=== PATIENT | male | born 1930 | race Caucasian/White ===

== ENCOUNTER 2017-03-30 20:50 | Inpatient (IN) | payer MEDICARE ==
[2017-03-30] MEDS ORDERED: Oseltamivir 75 MG CAP PO SCH (21:30)
[2017-03-30] MEDS ORDERED: Enoxaparin Sodium 100 MG/ML SYRINGE ONE (21:49)
[2017-03-30 22:41] LABS: INR-International Normal Ratio 1.1; PTT 23.3 SEC (22.9-36.1); Prothrombin Time 14.5 SEC (12.0-14.7)
[2017-03-30 23:00] LABS: CKMB 4.7 ng/mL (0-6.6)
[2017-03-30 23:13] LABS: Troponin I 2.248 ng/mL (< 0.028)
[2017-03-30] MEDS ORDERED: Ondansetron HCl/PF 4 MG/2 ML Vial IVP PRN (23:34)
[2017-03-30] MEDS ORDERED: Ondansetron ODT 4 MG TAB PO PRN (23:34)
[2017-03-30] MEDS ORDERED: Acetaminophen 325 MG TAB PO PRN (23:34)
[2017-03-30] MEDS ORDERED: Acetaminophen 650 MG Suppository PR PRN (23:34)
[2017-03-31] MEDS: Sodium Chloride 0.9% 1,000 ML IV SCH ×4 (00:04→17:00)
[2017-03-31] MEDS: Vancomycin HCl 1.25 GM in Sodium Chloride 0.9% 250 ML 250 ML IVPB SCH (00:28)
[2017-03-31 01:24] LABS: Critical Call Chem Troponin I RESULT DECREASING; Troponin I 2.066 ng/mL (< 0.028)
--- NOTE | 2017-03-31 02:50 | HP-2 ---
DATE OF ADMISSION: 03/30/2017. CODE STATUS: DNR/DNI. PRIMARY CARE PHYSICIAN: Dr. Byrne, city call. ATTENDING: Dr. Ge. RESIDENT: Rizwan Petersen MD, PGY1. HISTORIAN: Granddaughter and daughter. CHIEF COMPLAINT: AMS, not getting out of bed. HISTORY OF PRESENT ILLNESS: This is an 86-year-old male that came into the ER with altered mental st atus and 2-day history of not really getting out of bed, not being compliant. Initially when I went and talked to the patient, there was no family in the room, tried talking with him, he was only alert and oriented x2, did not answer questions appropriately and did not seem to be with it very much, di d not follow commands very well. Family did end up coming to the room, granddaughter, daughter and s on-in-law. Granddaughter had been the one checking in on him the last few days. The granddaughter's mom stays with him usually radio time buyer, but she started getting sick today, did not feel good, did not want to get him sick, so had not been staying with him. They were checking on him frequently. They said yesterday he started kind of just not feeling too well, was not getting up out of bed, was stil l drinking okay, but was not eating very well and they said he maybe had a mild cough then they said they went and checked on him this morning, took him breakfast, was not eating. Her granddaughter's s on said he was not getting out of bed, was not being cooperative, so they continued to check him agai n, still was not really getting out of bed, was not really with it kind of altered, so then they sent him to the ER where he got a fluid bolus and got Rocephin. REVIEW OF SYSTEMS: Unable to obtain the review of systems due to his altered mental status. 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 PAST SURGICAL HISTORY: None. ALLERGIES: No known drug allergies. MEDICATIONS: He only takes tamsulosin, unknown dose and 2 baby aspirins a day. FAMILY HISTORY: Unknown. SOCIAL HISTORY: Never a smoker. No alcohol. No illicit drug use. PHYSICAL EXAMINATION: VITAL SIGNS: Blood pressure was 139/94, pulse was 110, respirations were 18, temperature was 98.7, p ulse ox 97% on room air, weight was 96.3 kilograms. GENERAL: Alert and oriented x2, well-developed, well-nourished, obese, not appropriately interactive and not following commands. EYES: Conjunctivae within normal limits. PERRLA. ENT: TMs pearly byrne. No bulging or erythema. His mucous membranes were a little dry. NECK: Supple, no lymphadenopathy, no thyromegaly, no bruits. CARDIOVASCULAR: Irregularly irregular. No murmurs, no gallops. Radial pulses, pedal pulses palpate d bilaterally. RESPIRATORY: Normal breathing effort. No retractions. Lungs are clear to auscultation bilaterally. SKIN: He had some cool extremities. His hands and feet were kind of cool to the touch. ABDOMEN: Soft, nontender to palpation. Bowel sounds are normal in all 4 quadrants. No masses or di stention. EXTREMITIES: No edema. No pitting. No sign of fluid overload. MUSCULOSKELETAL: Structure within normal limits. Had decreased range of motion, was not out really following commands. NEUROLOGIC: Had some focal neuro deficits as he was not following commands, but likely more due to a ltered mental status. LABORATORY DATA: These labs were drawn at the outside ER in [place]. White blood cell count was 3 .49, hemoglobin was 17, hematocrit was 49.6, platelets were 102, MCV was 83.7. Sodium was 139, potas sium was 4.6, chloride was 105, carbon dioxide was 19, BUN was 29.1, creatinine was 1.9. GFR was 41, glucose was 120. CK was 1063, CK-MB was 3.7. Troponin was 2.537. Calcium was 8.7, total protein w as 7.3, albumin was 3.7, total bilirubin was 0.9, AST was 47, ALT was 20, alkaline phosphatase was 97 . He was flu A positive. UDS was negative. Lactic acid was 2.7. UA was dark yellow, had small wilian unt of blood, 30 protein, negative leukocyte esterase, negative nitrites, trace ketones, negative glu cose, red blood cells 2-5, white blood cells 0-2, bacteria trace, negative squamous epithelial. EKG showed atrial fibrillation, no ST changes, ST elevations. Chest x-ray showed cardiomegaly. IMAGING: CT brain showed chronic changes, no acute intracranial abnormality. ASSESSMENT AND PLAN: This 86-year-old male that came in with flu, positive labs and altered mental s tatus. 1. Wpv-DS-ysxjruota myocardial infarction. He was given a dose of therapeutic Lovenox in the ER. W e will continue therapeutic Lovenox for now. We will admit to telemetry. We will trend his troponin s x3. He has a history of chronic atrial fibrillation, currently in atrial fibrillation, now on the Lovenox and will continue aspirin. We will start him on a statin as well. We will possibly consult Cardiology in the morning and continue to follow rate on the monitor, is not complaining of chest sandra n at this time. 2. Sepsis secondary to influenza A. He had elevated tachycardia, low white blood cell count, was fl u positive on labs. We will start him on Tamiflu 30 mg b.i.d. due to his renal function. We will co ntinue to trend lactic acid. We will start him on fluids, got 2 fluid boluses. We will start him on fluids and normal saline at a rate of 175. We will check blood cultures, urine cultures, get a repe at a.m. CBC. We will start him on broad spectrum antibiotics, Rocephin and vancomycin for the time b eing. 3. Acute kidney injury on chronic kidney disease, baseline creatinine based on past hospitalizations around 1.5, 1.4. We will recheck a.m. CMP and will give fluids per the plan above. 4. Elevated CK. We will give in fluids for the plan above, we will continue to monitor. He had not been moving out of bed the last few days, likely why it is elevated. 5. Altered mental status secondary to problem above. We will get PT and OT for evaluation. He had outside speech evaluation at [facility] in which he had passed. No need for them at this time. 6. Hypertension. We will continue to monitor. May need to start him on some medicine if blood pres sures remain elevated. 7. Benign prostatic hypertrophy. We will want to continue his home tamsulosin, once we know his dos e. 8. Deep venous thrombosis prophylaxis, is on therapeutic Lovenox and will put him on SCDs.
[2017-03-31 03:10] LABS: Band 2 % (5-11); Hemoglobin 16.9 g/dL (14.0-18.0); Lymphocytes 36 % (21-51); MDiff Complete? YES; Mean Corpuscular HGB CONC 35.2 g/dL (32.0-36.0); Mean Corpuscular Hemoglobin 31.6 pg (27.0-31.0); Mean Corpuscular Volume 89.6 fl (80.0-94.0); Mean Platelet Volume 8.4 fL (7.4-10.4); Monocytes 11 % (0-10); Neutrophil 51 % (42-75); PLT Morphology Comment Appears Decreased; Platelet Count 97 thou/uL (130-400); RBC Distribution Width 12.7 % (11.5-14.5); Red Blood Cell (RBC) Count 5.34 mill/uL (4.70-6.10)
[2017-03-31 03:14] LABS: Lactic Acid 2.3 mmol/L (0.5-2.2)
[2017-03-31 03:27] LABS: ALT (SGPT) 17 U/L (8-55); AST (SGOT) 48 U/L (5-34); Albumin 3.5 g/dL (3.4-4.8); Alkaline Phosphatase 87 U/L (40-150); Anion Gap 16 mmol/L (10-20); BUN (Urea Nitrogen) 29 mg/dL (8.4-25.7); Bilirubin, Total 0.7 mg/dL (0.2-1.2); Calc. Creatinine Clearance 45 mL/min (70-130); Calcium 7.9 mg/dL (7.8-10.44); Carbon Dioxide 20 mmol/L (23-31); Chloride 110 mmol/L (98-107); Estimated GFR-MDRD 41; Globulin 2.8 g/dL (2.4-3.5); Glucose 93 mg/dL (83-110); Potassium 4.2 mmol/L (3.5-5.1); Protein, Total 6.3 g/dL (5.8-8.1); Sodium 142 mmol/L (136-145)
--- NOTE | 2017-03-31 06:18 | HP ---
CHIEF COMPLAINT: Confusion. HISTORY OF PRESENT ILLNESS: This is a pleasant 86-year-old male with past history of chronic atrial fibrillation, BPH, and hypertension, who presents with a couple day history of becoming progressively more confused per family. He required a couple of family members in order to get him into the car t o go to the hospital. At the outside hospital, he was diagnosed with flu A as well as NSTEMI with tr oponin 2.5, given Lovenox and subsequently transferred to our facility. Currently, he has absolutely zero complaints. He is alert and oriented x3, conversing and laughing with his family in the room. He specifically denies chest pain, palpitations, shortness of breath, swelling, headache, vision ruiz nges, numbness, tingling, or weakness anywhere and his family actually remarked that he looked so goo d. They wonder why they brought him to the hospital. PAST MEDICAL HISTORY: Significant for history of lymphoma, essential hypertension, BPH, chronic kidn ey disease, and chronic atrial fibrillation. PAST SURGICAL HISTORY: Positive for vasectomy and tonsillectomy. ALLERGIES: No known drug allergies. MEDICATIONS: Aspirin which is the only one he said he took as well as Flomax for his kidneys. FAMILY HISTORY: Noncontributory. SOCIAL HISTORY: Denies tobacco, ethanol, or drug use. PHYSICAL EXAMINATION: VITAL SIGNS: Most recent recorded at least include a BP 146/118, pulse 98, respirations 23, temperat ure 98.4, 96% on room air. GENERAL: In no acute distress. Again, chatting with his family and laughing with them. HEENT: He has hearing aids and is obviously hard of hearing. Eyes are without icterus or injection. Dry mucous membranes. Nares are patent without discharge. COR: Irregularly irregular but not tachycardic. No obvious murmur. LUNGS: With respiratory crackles at the bases. No wheezes. No increased work of breathing. GASTROINTESTINAL: Bowel sounds positive, nontender to palpation. No palpable organomegaly. GENITOURINARY: Deferred. MUSCULOSKELETAL: Without obvious deformity, contracture, or joint swelling. SKIN: Warm and dry without rash. NEUROLOGIC: Cranial nerves II through XII are intact and symmetric. Motor is 5/5 and specifically t ested in upper and lower extremities. Sensation is intact to light touch in upper and lower extremit ies. LABORATORY DATA AND IMAGING: Per report include a CT of the head, there was no acute process. A luann st x-ray with cardiomegaly but no infiltrate. Troponin of 2, leukopenia and a CK of 1000, and a lact ic acid of 2.3. ASSESSMENT AND PLAN: This is an 86-year-old male with: 1. Influenza A. We will begin Tamiflu adjusted as necessary for his GFR, plan 1 tab p.o. b.i.d. for 5 days. He received 1 liter bolus. We will continue some fluids overnight with careful observation of his fluid status. 2. Non-ST elevation myocardial infarction. Repeat EKG evidently with no changes. Begin aspirin, hi gh dose statin, and out of the concern for sepsis as well. We will hold off for now on a beta blocke r or JANINE inhibitor in light of his acute kidney injury. I will place him on therapeutic Lovenox, con sult Cardiology early in the morning, nitroglycerin or morphine for pain, and O2 p.r.n. 3. Atrial fibrillation. He currently appears to be rate controlled. He is on aspirin. He has decl ined anticoagulation in the past. 4. Acute kidney injury on chronic kidney disease, likely secondary to sepsis plus or minus dehydrati on or rhabdomyolysis. 5. Rhabdomyolysis, mild and he has been relatively immobile in bed for the last day. We will go ahe ad and fluid hydrate him and recheck in the morning. 6. Cardiomegaly on chest x-ray. We will obtain BNP. 7. Deep venous thrombosis prophylaxis. He has been anticoagulated with Lovenox. 8. Gastrointestinal prophylaxis. Diet n.p.o. after midnight.
[2017-03-31] MEDS ORDERED: Enoxaparin Sodium 100 MG/ML SYRINGE SC SCH (09:00)
[2017-03-31] MEDS: Oseltamivir 6 MG/ML ORAL SUSP PO SCH ×2 (10:30→20:28)
--- NOTE | 2017-03-31 12:52 | PDOC.FM ---
- Subjective Subjective: Patient reports doing well overnight. Denies CP/SOB/N/V/D. Knows his name, but unable to orient to time or place. - Objective MAR Reviewed: Yes Vital Signs & Weight: Vital Signs (12 hours) Temp Pulse Resp BP Pulse Ox 03/31/17 11:53 98.6 F 89 18 135/85 96 03/31/17 07:22 98.6 F 93 18 128/83 98 03/31/17 03:16 97.3 F L 89 18 138/89 94 L Weight Weight 93.168 kg I&O: 03/30/17 03/31/17 04/01/17 06:59 06:59 06:59 Intake Total 840 Output Total 320 Balance 520 Result Diagrams: 03/31/17 02:38 03/31/17 02:38 <Joel Jane - Last Filed: 03/31/17 12:50> - Objective Vital Signs & Weight: Vital Signs (12 hours) Temp Pulse Pulse Pulse Resp BP BP 03/31/17 15:35 97.9 F 89 18 03/31/17 11:53 98.6 F 89 18 03/31/17 11:00 88 88 123/79 135/85 03/31/17 08:36 88 83 126/81 129/93 H 03/31/17 08:10 97.5 F L 98 18 03/31/17 07:22 98.6 F 93 18 BP Pulse Ox 03/31/17 15:35 119/71 96 03/31/17 11:53 135/85 96 03/31/17 11:00 03/31/17 08:36 03/31/17 08:10 98 03/31/17 07:22 128/83 98 Weight Weight 93.168 kg I&O: 03/30/17 03/31/17 04/01/17 06:59 06:59 06:59 Intake Total 840 Output Total 320 Balance 520 Result Diagrams: 03/31/17 02:38 03/31/17 02:38 <Kelle Foley - Last Filed: 03/31/17 17:20> Phys Exam - Physical Examination Constitutional: NAD HEENT: PERRLA, moist MMs Neck: full ROM Respiratory: no wheezing, clear to auscultation bilateral Cardiovascular: no significant murmur irregularly irregular Gastrointestinal: soft, non-tender, no distention Musculoskeletal: no edema, pulses present Neurological: non-focal, normal sensation, moves all 4 limbs <Joel Jane - Last Filed: 03/31/17 12:50> Dx/Plan (1) NSTEMI (non-ST elevated myocardial infarction) Code(s): I21.4 - NON-ST ELEVATION (NSTEMI) MYOCARDIAL INFARCTION Status: Acute Plan: trop 2.5 at outside ER. trending down at x2. Will continue patient on th lovenox and consult Dr. Howard of cardiology, recs greatly appreciated. (2) Influenza A Code(s): J10.1 - FLU DUE TO OTH IDENT INFLUENZA VIRUS W OTH RESP MANIFEST Status: Acute Plan: tamiflu, renally dosed. Symptomatic treatment (3) Chronic atrial fibrillation Code(s): I48.2 - CHRONIC ATRIAL FIBRILLATION Status: Acute Plan: rate controlled at this time. Per family in room, patient refuses any medication in the past for this. (4) Essential hypertension Code(s): I10 - ESSENTIAL (PRIMARY) HYPERTENSION Status: Acute (5) History of lymphoma Code(s): Z85.79 - PRSNL HX OF [facility] NEOPL OF LYMPHOID, HEMATPOETC & REL TISS Status: Acute (6) Sepsis Code(s): A41.9 - SEPSIS, UNSPECIFIED ORGANISM Status: Resolved Plan: due to Influenza A. Resolved at this time. <Joel Jane - Last Filed: 03/31/17 12:50> Attending Addendum - Attending Addendum I personally evaluated the patient and discussed the management with Dr. Jane I agree with the History, Examination, Assessment and Plan documented above with any addition or exceptions noted below- Patient working with PT; per family he is more oriented/not delerious anymore; just very weak. Afebrile VSS A /P: 1) NSTEMI- continue lovenox; holding JANINE due to FELY; cardiology consulted; awaiting recommendations. 2) Rhabdomyolysis- continue IVF; monitor urine output. 3) Influenza A- continue tamiflu. <Kelle Foley - Last Filed: 03/31/17 17:20>
[2017-03-31] MEDS ORDERED: cefTRIAXone\\ROCEPHIN 1 GM, Syringe 0.4 ML in Sterile Water 9.6 ML SLOW IVP SCH (16:00)
[2017-03-31] MEDS ORDERED: cefTRIAXone\\ROCEPHIN 1 GM in Sodium Chloride 0.9% 100 ML IVPB SCH (16:00)
[2017-03-31] MEDS ORDERED: Aspirin 325 mg Enteric Coated Tablet PO SCH (19:30)
[2017-03-31] MEDS ORDERED: Furosemide 40 MG/4 ML VIAL SLOW IVP SCH (20:00)
[2017-03-31] MEDS ORDERED: Potassium Chloride 20 MEQ TAB PO SCH (20:00)
[2017-03-31] MEDS: Atorvastatin Calcium 40 MG TAB PO SCH (20:27)
[2017-03-31] MEDS: Enoxaparin Sodium 80 MG/0.8 ML SYRINGE SC SCH (20:28)
[2017-03-31] MEDS ORDERED: Atorvastatin Calcium 40 MG TAB PO SCH (21:00)
--- NOTE | 2017-03-31 22:46 | CON ---
DATE OF CONSULTATION: 03/31/2017. PRIMARY CRAYON PAINTER: Dr. Ibrahima Avendaño. REASON FOR CONSULTATION: Mr. Frank Farah is an 86-year-old gentleman with history of chronic atrial f ibrillation and admitted with shortness of breath, influenza, non-ST elevation myocardial infarction. HISTORY OF PRESENT ILLNESS: Mr. Farah is 86 years of age. He was brought to the hospital after he w as found to be not getting up out of bed and altered mental status. He was disoriented when he was brought to the hospital. He did not have chest pain or pressure. He was brought here, given intravenous fluids, given Tamiflu and antibiotic. The patient is currently w heezing, although he denies shortness of breath, no chest pain. REVIEW OF SYSTEMS: Really not very reliable due to the altered mental status. PAST MEDICAL HISTORY: 1. Chronic atrial fibrillation. 2. Hypertension. 3. History of lymphoma, is in remission. PAST SURGICAL HISTORY: None. ALLERGIES: None known. MEDICATIONS PRIOR TO ADMISSION: Tamsulosin and baby aspirin. FAMILY HISTORY: Unknown. SOCIAL HISTORY: No smoking or alcohol. PHYSICAL EXAMINATION: GENERAL: This is a pleasant elderly gentleman, 86 years of age. VITAL SIGNS: Blood pressure is 119/71, pulse is 90-102, is irregularly irregular. HEENT: Sclerae nonicteric. Mouth mucous membranes are moist. NECK: Supple. No lymphadenopathy. LUNGS: He has rales at the bases of both lungs and has diffuse expiratory wheezing. CARDIAC: Irregularly irregular. No murmur, or gallop. ABDOMEN: Obese, nontender. EXTREMITIES: No clubbing or cyanosis. There is moderate peripheral edema. SKIN: Warm and dry. PSYCHIATRIC: Mental status is improved. Moves all extremities appropriately. PERTINENT LABORATORY AND X-RAY FINDINGS: Creatinine is 1.6, troponin 2.066. BNP 105.6. CPK 1487. EKG, is atrial fibrillation, right bundle-branch block. ASSESSMENT: 1. The patient appears to be in congestive heart failure, unknown if systolic or diastolic. Previou sly had normal systolic function; therefore, may be diastolic, acute on chronic. Appears volume over loaded. 2. Influenza. 3. Non-ST elevation infarction, probably demand ischemia with underlying coronary artery disease. 4. Renal function is impaired. Renal failure stage 3. Estimated GFR is 41. PLAN: 1. Would Hep-Lock IV. 2. Intravenous Lasix x1. 3. Reduce enoxaparin dose. 4. In view of the increased CPK, we would reduce or even stop the atorvastatin. We will cut the dos e at least to 20 mg for now. 5. Echocardiogram has been ordered. Dr. Avendaño will resume patient's care tomorrow.
[2017-04-01] MEDS: Vancomycin HCl 1.25 GM in Sodium Chloride 0.9% 250 ML 250 ML IVPB SCH (01:05)
[2017-04-01 07:07] LABS: Hemoglobin 15.7 g/dL (14.0-18.0); Mean Corpuscular HGB CONC 33.9 g/dL (32.0-36.0); Mean Corpuscular Hemoglobin 30.4 pg (27.0-31.0); Mean Corpuscular Volume 89.6 fl (80.0-94.0); Mean Platelet Volume 8.1 fL (7.4-10.4); Platelet Count 107 thou/uL (130-400); RBC Distribution Width 12.9 % (11.5-14.5); Red Blood Cell (RBC) Count 5.16 mill/uL (4.70-6.10); White Blood Cell (WBC) Count 3.1 thou/uL (4.8-10.8)
[2017-04-01 07:37] LABS: Band 2 % (5-11); Lymphocytes 48 % (21-51); MDiff Complete? YES; Monocytes 6 % (0-10); Neutrophil 32 % (42-75); PLT Morphology Comment Appears Decreased; Reactive Lymphocytes 11 % (0-10)
--- NOTE | 2017-04-01 08:58 | PDOC.FM ---
- Subjective Subjective: Patient reports no problems overnight. Denies CP, SOB, N/V, DELEON. Oriented to person and place, not time. - Objective MAR Reviewed: Yes Vital Signs & Weight: Vital Signs (12 hours) Temp Pulse Resp BP Pulse Ox 04/01/17 07:35 97.9 F 81 18 115/77 95 04/01/17 03:27 98.4 F 71 16 119/85 93 L 03/31/17 23:16 98.6 F 97 18 106/72 93 L Weight Weight 90.129 kg I&O: 03/31/17 04/01/17 04/02/17 06:59 06:59 06:59 Intake Total 840 490 Output Total 320 2500 Balance Result Diagrams: 04/01/17 05:14 03/31/17 02:38 <Joel Jane - Last Filed: 04/01/17 08:56> - Objective Vital Signs & Weight: Vital Signs (12 hours) Temp Pulse Resp BP Pulse Ox 04/01/17 16:00 97.5 F L 96 18 141/78 H 95 04/01/17 11:53 97.9 F 99 18 133/87 94 L 04/01/17 08:00 97.9 F 81 18 04/01/17 07:35 97.9 F 81 18 115/77 95 Weight Weight 90.129 kg I&O: 03/31/17 04/01/17 04/02/17 06:59 06:59 06:59 Intake Total 840 490 240 Output Total 320 2500 Balance 240 Result Diagrams: 04/01/17 11:17 04/01/17 05:14 <Adrianna Grande - Last Filed: 04/01/17 16:31> Phys Exam - Physical Examination Constitutional: NAD HEENT: PERRLA Neck: supple, full ROM Respiratory: no wheezing, clear to auscultation bilateral Cardiovascular: RRR, no significant murmur Gastrointestinal: soft, non-tender Musculoskeletal: no edema, pulses present Neurological: normal sensation, moves all 4 limbs Psychiatric: normal affect, A&O x 3 <Joel Jane - Last Filed: 04/01/17 08:56> Dx/Plan (1) NSTEMI (non-ST elevated myocardial infarction) Code(s): I21.4 - NON-ST ELEVATION (NSTEMI) MYOCARDIAL INFARCTION Status: Acute Plan: trop 2.5 at outside ER. trending down at x2. Patient of Dr. Avendaño, will be seen by him today, recs greatly appreciated. Continue therapeutic lovenox ECHO pending (2) Influenza A Code(s): J10.1 - FLU DUE TO OTH IDENT INFLUENZA VIRUS W OTH RESP MANIFEST Status: Acute Plan: tamiflu, renally dosed. Symptomatic treatment (3) Chronic atrial fibrillation Code(s): I48.2 - CHRONIC ATRIAL FIBRILLATION Status: Acute Plan: rate controlled at this time. Per family in room, patient refuses any medication in the past for this. (4) Essential hypertension Code(s): I10 - ESSENTIAL (PRIMARY) HYPERTENSION Status: Acute (5) History of lymphoma Code(s): Z85.79 [facility] HEMAT[facility]ET[facility] & REL TISS Status: Acute (6) Sepsis Code(s): A41.9 - SEPSIS, UNSPECIFIED ORGANISM Status: Resolved Plan: due to Influenza A. Resolved at this time. <Joel Jane - Last Filed: 04/01/17 08:56> Attending Addendum - Attending Addendum I personally evaluated the patient and discussed the management with Dr. Jane at 1040 am. I agree with the History, Examination, Assessment and Plan documented above with any addition or exceptions noted below. NSTEMI-appreciate cards recs. Pending ECHO Influenza A- tamiflu. AMS secondary to influenza- improving. Patient will most likely need inpt rehab CKD stage III- stable Chronic afib- rate controlled <Adrianna Grande - Last Filed: 04/01/17 16:31>
--- NOTE | 2017-04-01 09:00 | RAD ---
CHEST ONE VIEW: History: CHF. Comparison: 12-24-14 FINDINGS: Cardiac silhouette is magnified by projection and upper limits of normal in size. Pulmonary vasculatu re is also upper limits of normal. Mediastinum is midline with aortic calcification. No lobar consoli dation or pneumothorax are apparent. electronic device monitor leads overlie the chest. IMPRESSION: Borderline cardiomegaly and pulmonary vascular prominence. No florid CHF is evident. POS: DIEGO
[2017-04-01] MEDS: Enoxaparin Sodium 80 MG/0.8 ML SYRINGE SC SCH (10:20)
[2017-04-01] MEDS: Oseltamivir 6 MG/ML ORAL SUSP PO SCH ×2 (10:21→21:57)
[2017-04-01 11:34] LABS: Hemoglobin 15.9 g/dL (14.0-18.0); Platelet Count 100 thou/uL (130-400)
[2017-04-01 12:21] LABS: Anion Gap 16 mmol/L (10-20); BUN (Urea Nitrogen) 30 mg/dL (8.4-25.7); Calc. Creatinine Clearance 47 mL/min (70-130); Calcium 7.9 mg/dL (7.8-10.44); Carbon Dioxide 16 mmol/L (23-31); Chloride 113 mmol/L (98-107); Estimated GFR-MDRD 45; Glucose 91 mg/dL (83-110); Potassium 4.5 mmol/L (3.5-5.1); Sodium 140 mmol/L (136-145)
--- NOTE | 2017-04-01 13:15 | PRG ---
DATE OF SERVICE: 04/01/2017 SUBJECTIVE: Mr. Farah was seen and evaluated by Dr. Lonnie Howard yesterday. Mr. Farah had mental s tatus changes. Mr. Farah is somewhat confused. His granddaughter is present and assists with the hi story. He denies chest pain, pressure, shortness of breath or associated symptoms. His peak troponi n was 2. He has been diagnosed with the Influenza. OBJECTIVE: VITAL SIGNS: Blood pressure 115/77, pulse 81 and temperature is 97.9. LUNGS: Clear to auscultation. HEART: Irregularly irregular. ABDOMEN: Soft, nontender and nondistended. EXTREMITIES: No edema. IMPRESSION: 1. Elevated troponin. 2. Influenza. 3. Chronic atrial fibrillation. RECOMMENDATIONS: Mr. Farah has not been on any coagulation therapy. I have not seen Mr. Farah over the last 4 years. I discussed proceeding with angiography versus medical therapy. The patient and g randdaughter prefer proceeding with a more conservative approach with which I certainly agree. The p atient has no current symptoms suggesting angina. The last time I saw Mr. Farah, he was on Xarelto a nd will resume. Continue aspirin and atorvastatin. We will add low dose of Coreg.
[2017-04-01] MEDS: Rivaroxaban 10 MG TAB PO SCH (16:55)
[2017-04-01] MEDS: Carvedilol 3.125 MG TAB PO SCH (21:55)
[2017-04-01] MEDS: Atorvastatin Calcium 40 MG TAB PO SCH (21:55)
[2017-04-02 06:13] LABS: Hemoglobin 14.9 g/dL (14.0-18.0); Lymphocytes 50 % (21-51); MDiff Complete? YES; Mean Corpuscular HGB CONC 33.6 g/dL (32.0-36.0); Mean Corpuscular Hemoglobin 29.6 pg (27.0-31.0); Mean Corpuscular Volume 88.1 fl (80.0-94.0); Mean Platelet Volume 7.5 fL (7.4-10.4); Monocytes 13 % (0-10); Neutrophil 37 % (42-75); PLT Morphology Comment Appears Decreased; Platelet Count 93 thou/uL (130-400); RBC Distribution Width 12.6 % (11.5-14.5); Red Blood Cell (RBC) Count 5.03 mill/uL (4.70-6.10); White Blood Cell (WBC) Count 2.8 thou/uL (4.8-10.8)
--- NOTE | 2017-04-02 06:27 | PDOC.FM ---
- Subjective Subjective: Patient reports he is doing well, denies CP, SOB, N/V. Difficult to converse with patient as he is mostly deaf and his hearing aids need batteries per family. - Objective MAR Reviewed: Yes Vital Signs & Weight: Vital Signs (12 hours) Temp Pulse Resp BP Pulse Ox 04/02/17 04:00 98 F 88 18 114/82 95 04/01/17 23:19 97.7 F 73 18 116/71 92 L 04/01/17 20:00 97.7 F 87 20 97 04/01/17 19:12 97.7 F 87 20 117/80 97 Weight Weight 101.831 kg I&O: 03/31/17 04/01/17 04/02/17 06:59 06:59 06:59 Intake Total 840 490 970 Output Total 320 2500 450 Balance 520 -2009 520 Result Diagrams: 04/02/17 05:15 04/01/17 05:14 <Joel Jane M - Last Filed: 04/02/17 11:29> - Objective Vital Signs & Weight: Vital Signs (12 hours) Temp Pulse Resp BP Pulse Ox 04/02/17 15:34 98.1 F 82 20 97/66 94 L 04/02/17 11:13 97.8 F 83 20 98/68 92 L 04/02/17 08:00 98.6 F 80 20 04/02/17 07:28 98.6 F 80 20 139/71 96 Weight Admit Weight 91.263 kg Weight 101.831 kg I&O: 04/01/17 04/02/17 04/03/17 06:59 06:59 06:59 Intake Total 490 970 120 Output Total 2500 1100 300 Balance -2009 -130 -180 Result Diagrams: 04/02/17 05:15 04/01/17 05:14 <Adrianna Grande Beth - Last Filed: 04/02/17 16:18> Phys Exam - Physical Examination Constitutional: NAD HEENT: PERRLA, oral pharynx no lesions Respiratory: no wheezing, clear to auscultation bilateral Cardiovascular: no significant murmur irreg irreg Gastrointestinal: soft, non-tender Musculoskeletal: no edema, pulses present Neurological: non-focal, normal sensation Psychiatric: normal affect Deviation from normal: non-erythematous blister or right medial heel <Joel Jane - Last Filed: 04/02/17 11:29> Dx/Plan (1) NSTEMI (non-ST elevated myocardial infarction) Code(s): I21.4 - NON-ST ELEVATION (NSTEMI) MYOCARDIAL INFARCTION Status: Acute Plan: Discussion between Dr. Avendaño and patient/family yesterday seems to lean toward conservative treatment, however waiting on ECHO for final evaluation. Will investigate pending status of ECHO lovenox d/c yesterday and started on Xarelto (2) Influenza A Code(s): J10.1 - FLU DUE TO OTH IDENT INFLUENZA VIRUS W OTH RESP MANIFEST Status: Acute Plan: tamiflu, renally dosed. Symptomatic treatment (3) Chronic atrial fibrillation Code(s): I48.2 - CHRONIC ATRIAL FIBRILLATION Status: Acute Plan: rate controlled at this time (4) Essential hypertension Code(s): I10 - ESSENTIAL (PRIMARY) HYPERTENSION Status: Acute (5) Leukocytopenia Code(s): D72.819 - DECREASED WHITE BLOOD CELL COUNT, UNSPECIFIED Status: Acute (6) History of lymphoma Code(s): Z85.79 - PRSNL HX OF [facility] OF LYMPHOID, HEMATPOETC & REL TISS Status: Acute (7) Sepsis Code(s): A41.9 - SEPSIS, UNSPECIFIED ORGANISM Status: Resolved Plan: due to Influenza A. Resolved at this time. <Joel Jane - Last Filed: 04/02/17 11:29> Attending Addendum - Attending Addendum I personally evaluated the patient and discussed the management with Dr. Jane I agree with the History, Examination, Assessment and Plan documented above with any addition or exceptions noted below. Influenza A- continue tamiflu NSTEMI- medical management per cards afib- rate controlled- xarelto and coreg Neutropenia and thrombocytopenia- probably result of influenza A. Will need repeat in 2-4 weeks as an outpatient Deconditioning- needs inpt rehab. Stable for d/c <Adrianna Grande - Last Filed: 04/02/17 16:18>
[2017-04-02] MEDS: Tamsulosin HCl 0.4 MG CAP PO SCH (08:46)
[2017-04-02] MEDS: Oseltamivir 6 MG/ML ORAL SUSP PO SCH ×2 (08:46→21:16)
[2017-04-02] MEDS: Carvedilol 3.125 MG TAB PO SCH ×2 (08:46→21:16)
[2017-04-02 10:04] VITALS: BMI 32.2
--- NOTE | 2017-04-02 14:32 | PRG ---
DATE OF SERVICE: 04/02/2017 SUBJECTIVE: Mr. Farah is doing well, no current symptoms. OBJECTIVE: VITAL SIGNS: Blood pressure 139/71, pulse 80, temperature 98.6. LUNGS: Clear to auscultation. CARDIAC: Irregularly irregular. ABDOMEN: Soft, nontender, nondistended. EXTREMITIES: No edema. Echo Doppler shows LVEF 50% to 55%. IMPRESSION: 1. Elevated troponin. 2. Atrial fibrillation. 3. Dementia. RECOMMENDATIONS: I would recommend a conservative therapy for Mr. Farah. He and his family both agr ee. Continue aspirin, atorvastatin, and carvedilol. Plan is to follow up with Mr. Farah in the next 4-8 weeks.
[2017-04-02] MEDS: Rivaroxaban 10 MG TAB PO SCH (18:41)
[2017-04-02] MEDS: Atorvastatin Calcium 40 MG TAB PO SCH (21:15)
[2017-04-03] MEDS: Tamsulosin HCl 0.4 MG CAP PO SCH (10:19)
[2017-04-03] MEDS: Carvedilol 3.125 MG TAB PO SCH ×2 (10:19→20:33)
--- NOTE | 2017-04-03 10:53 | PDOC.FM ---
- Subjective Subjective: Patient did well overnight. Denies CP, SOB, N/V, pain. - Objective MAR Reviewed: Yes Vital Signs & Weight: Vital Signs (12 hours) Temp Pulse Resp BP Pulse Ox 04/03/17 08:00 98.2 F 81 20 131/82 95 04/03/17 03:30 98.7 F 77 20 144/80 H 97 04/02/17 23:31 98.1 F 65 16 120/73 98 Weight Admit Weight 91.263 kg Weight 97.296 kg I&O: 04/02/17 04/03/17 04/04/17 06:59 06:59 06:59 Intake Total 970 1240 Output Total 1100 500 Balance -130 740 Result Diagrams: 04/02/17 05:15 04/01/17 05:14 <Joel Jane - Last Filed: 04/03/17 10:51> - Objective Vital Signs & Weight: Vital Signs (12 hours) Temp Pulse Resp BP Pulse Ox 04/03/17 16:00 97.8 F 76 18 95/62 94 L 04/03/17 12:00 97.5 F L 80 18 117/74 96 04/03/17 08:00 98.2 F 81 20 131/82 95 Weight Admit Weight 91.263 kg Weight 97.296 kg I&O: 04/02/17 04/03/17 04/04/17 06:59 06:59 06:59 Intake Total 970 1240 Output Total 1100 500 Balance -130 740 Result Diagrams: 04/02/17 05:15 04/01/17 05:14 <Adrianna Grande - Last Filed: 04/03/17 16:17> Phys Exam - Physical Examination Constitutional: NAD HEENT: moist MMs Neck: no JVD, full ROM Respiratory: no wheezing, clear to auscultation bilateral Cardiovascular: RRR, no significant murmur Musculoskeletal: no edema, pulses present Neurological: normal sensation, moves all 4 limbs Psychiatric: normal affect <Joel Jane - Last Filed: 04/03/17 10:51> Dx/Plan (1) NSTEMI (non-ST elevated myocardial infarction) Code(s): I21.4 - NON-ST ELEVATION (NSTEMI) MYOCARDIAL INFARCTION Status: Acute Plan: Dr. Avendaño consulted, recs greatly appreciated Conservative therapy with medication per cards (2) Influenza A Code(s): J10.1 - FLU DUE TO OTH IDENT INFLUENZA VIRUS W OTH RESP MANIFEST Status: Acute Plan: tamiflu. Symptomatic treatment (3) Chronic atrial fibrillation Code(s): I48.2 - CHRONIC ATRIAL FIBRILLATION Status: Acute Plan: rate controlled at this time (4) Essential hypertension Code(s): I10 - ESSENTIAL (PRIMARY) HYPERTENSION Status: Acute (5) Leukocytopenia Code(s): D72.819 - DECREASED WHITE BLOOD CELL COUNT, UNSPECIFIED Status: Acute (6) History of lymphoma Code(s): Z85.79 - PRSNL HX OF [facility] OF LYMPHOID, HEMATPOETC & REL TISS Status: Acute (7) Sepsis Code(s): A41.9 - SEPSIS, UNSPECIFIED ORGANISM Status: Resolved Plan: due to Influenza A. Resolved at this time. <Joel Jane - Last Filed: 04/03/17 10:51> Attending Addendum - Attending Addendum I personally evaluated the patient and discussed the management with Dr. Jane I agree with the History, Examination, Assessment and Plan documented above with any addition or exceptions noted below. Influenza A- cont tamiflu NSTEMI- home on coreg, xarelto Deconditioning- inpt rehab. Ready for transfer once bed available. <Adrianna Grande - Last Filed: 04/03/17 16:17>
[2017-04-03] MEDS: Oseltamivir 6 MG/ML ORAL SUSP PO SCH ×2 (12:24→20:42)
[2017-04-03] MEDS: Rivaroxaban 10 MG TAB PO SCH (17:52)
[2017-04-03] MEDS: Atorvastatin Calcium 40 MG TAB PO SCH (20:33)
[2017-04-04 06:01] LABS: Hemoglobin 13.6 g/dL (14.0-18.0); Platelet Count 78 thou/uL (130-400)
--- NOTE | 2017-04-04 06:15 | PDOC.FM ---
- Subjective Subjective: No complaints or concerns overnight. Denies CP, SOB, weakness, N/V. - Objective MAR Reviewed: Yes Vital Signs & Weight: Vital Signs (12 hours) Temp Pulse Resp BP Pulse Ox 04/04/17 04:04 97.8 F 73 20 124/68 94 L 04/03/17 23:40 97.6 F 72 22 H 114/68 94 L 04/03/17 20:00 98.4 F 84 16 04/03/17 19:37 98.4 F 84 16 101/61 94 L Weight Admit Weight 91.263 kg Weight 97.296 kg I&O: 04/02/17 04/03/17 04/04/17 06:59 06:59 06:59 Intake Total 970 1240 610 Output Total 1100 500 Balance -130 740 610 Result Diagrams: 04/04/17 05:27 04/04/17 05:27 <Joel Jane - Last Filed: 04/04/17 10:58> - Objective Vital Signs & Weight: Vital Signs (12 hours) Temp Pulse Resp BP Pulse Ox 04/04/17 11:43 97.5 F L 81 20 108/64 96 Weight Admit Weight 91.263 kg Weight 97.296 kg I&O: 04/03/17 04/04/17 04/05/17 06:59 06:59 06:59 Intake Total 1240 610 Output Total 500 Balance 740 610 Result Diagrams: 04/04/17 05:27 04/04/17 05:27 <Adrianna Grande - Last Filed: 04/04/17 21:26> Phys Exam - Physical Examination Constitutional: NAD HEENT: PERRLA, moist MMs Respiratory: no wheezing, clear to auscultation bilateral Cardiovascular: RRR, no significant murmur Gastrointestinal: soft, non-tender Musculoskeletal: no edema, pulses present Neurological: non-focal, normal sensation, moves all 4 limbs Psychiatric: normal affect <Joel Jane - Last Filed: 04/04/17 10:58> Dx/Plan (1) NSTEMI (non-ST elevated myocardial infarction) Code(s): I21.4 - NON-ST ELEVATION (NSTEMI) MYOCARDIAL INFARCTION Status: Acute Plan: Dr. Avendaño consulted, recs greatly appreciated Conservative therapy with medication per cards (2) Influenza A Code(s): J10.1 - FLU DUE TO OTH IDENT INFLUENZA VIRUS W OTH RESP MANIFEST Status: Acute Plan: tamiflu last dose given this morning (9 doses given in hospital, 1 dose given in ER initially on arrival) (3) Chronic atrial fibrillation Code(s): I48.2 - CHRONIC ATRIAL FIBRILLATION Status: Acute Plan: rate controlled at this time (4) Essential hypertension Code(s): I10 - ESSENTIAL (PRIMARY) HYPERTENSION Status: Acute (5) Leukocytopenia Code(s): D72.819 - DECREASED WHITE BLOOD CELL COUNT, UNSPECIFIED Status: Acute (6) History of lymphoma Code(s): Z85.79 - PRSNL HX OF [facility] OF LYMPHOID, HEMATPOETC & REL TISS Status: Acute (7) Sepsis Code(s): A41.9 - SEPSIS, UNSPECIFIED ORGANISM Status: Resolved Plan: due to Influenza A. Resolved at this time. - Plan Plan: CM has received word that patient will have bed today. Will plan for d/c today <Joel Jane - Last Filed: 04/04/17 10:58> Attending Addendum - Attending Addendum I personally evaluated the patient and discussed the management with Dr. Jane. I agree with the History, Examination, Assessment and Plan documented above with any addition or exceptions noted below. Influenza A- completed tamiflu regimen NSTEMI-medical management Thrombocytopenia- asymptomatic- repeat CBC in 2-3 weeks to ensure resolution after influenza. <Adrianna Grande - Last Filed: 04/04/17 21:26>
[2017-04-04] MEDS: Tamsulosin HCl 0.4 MG CAP PO SCH (08:58)
[2017-04-04] MEDS: Oseltamivir 6 MG/ML ORAL SUSP PO SCH (08:59)
[2017-04-04] MEDS: Carvedilol 3.125 MG TAB PO SCH (08:59)
[2017-04-04 11:46] VITALS: BP 108/64; TEMP 97.5
--- NOTE | 2017-04-07 09:31 | DIS-2 ---
DATE OF ADMISSION: 03/30/2017 DATE OF DISCHARGE: 04/04/2017 RESIDENT: Joel Jane D.O. ADMITTING ATTENDING: Dr. Jamil Ge DISCHARGE ATTENDING: Dr. Adrianna Grande M.D. CONSULTATIONS: Dr. Avendaño, Cardiology. PROCEDURES: Echocardiogram on 03/30/2017 showing ejection fraction of 50-55% with diastolic function unable to be assessed secondary to atrial fibrillation and a severely dilated left atrium. Chest x-ray on 04/01/2017 showing borderline cardiomegaly and pulmonary vascular prominence. PRIMARY DIAGNOSIS: 1. Elevated troponin likely indicative of mild [id number] elevation myocardial infarction. 2. Influenza A. SECONDARY DIAGNOSES: 1. Deconditioning. 2. Thrombocytopenia. 3. Hypertension. 4. Chronic atrial fibrillation. 5. History of lymphoma. DISCHARGE MEDICATIONS: 1. Carvedilol 3.125 mg p.o. t.i.d. 2. Xarelto 20 mg p.o. at bedtime daily. 3. Tamsulosin 0.4 mg p.o. daily. 4. Aspirin 81 mg p.o. daily. 5. Atorvastatin 20 mg p.o. daily. DISCONTINUED MEDICATIONS: None. HISTORY OF PRESENT ILLNESS AND HOSPITAL COURSE: The patient is an 86-year-old male who presented to the ER with a 3-4 day history of decreased activity with influenza A sick contacts. The patient was diagnosed with influenza A on admission and was started on Tamiflu. Also, during initial evaluation, the patient was found to have a troponin of 2.5 at outside hospital and was diagnosed with NSTEMI. The patient was given Lovenox and transferred to [facility]. The patient denied any complai nts including any chest pain, palpitations or shortness of breath during initial evaluation. Cardiol barbie was consulted with recommendations to get an echocardiogram. Delays in receiving echocardiogram did occur for approximately a day and a half, so the patient was just medically managed during that time. When echocardiogram was performed, it was found that patient had no signs of heart failure at this time, therefore Dr. Avendaño, after discussions with the family and patient decided to manage m edically instead of performing invasive procedures. During hospitalization, the patient was asymptom atic, though was often found to be somewhat demented, having difficulty orienting to location and ruth e. Also, of note, the patient on admission was found to meet sepsis criteria, but resolved soon after ad mission. Also having lactic acidosis of 2.7. Also, of note, the patient did have a low white blood cell count, which was suspected to be secondary to history of lymphoma as well as current influenza infection. It was recommended the patient follo w up in 4-6 weeks for repeat CBC to monitor. DISPOSITION: Stable. DISCHARGE INSTRUCTIONS: 1. Location: [facility] for deconditioning. 2. Diet: Heart healthy diet. 3. Activity: As tolerated with physical therapy and occupational therapy. 4. Followup: Follow up with Dr. Avendaño in 4-8 weeks and with PCP, Dr. Byrne soon after discharge from inpatient rehab.
== END 2017-04-04 14:18 | DRG 871 ==
LOC: ERS 20:50 → 2SE 23:11
PROVIDERS: ADMIT Emergency Medicine; ATTEND Emergency Medicine
DX: A41.89 Other specified sepsis (principal); I21.4 Non-ST elevation (NSTEMI) myocardial infarction; N17.9 Acute kidney failure, unspecified; D69.6 Thrombocytopenia, unspecified; I48.2 Chronic atrial fibrillation; N18.3 Chronic kidney disease, stage 3 (moderate); M62.82 Rhabdomyolysis; R65.20 Severe sepsis without septic shock; N40.0 Benign prostatic hyperplasia without lower urinary tract symptoms; Z85.72 Personal history of non-Hodgkin lymphomas; J10.1 Influenza due to other identified influenza virus with other respiratory manifestations; Z79.82 Long term (current) use of aspirin; D72.819 Decreased white blood cell count, unspecified; I12.9 Hypertensive chronic kidney disease with stage 1 through stage 4 chronic kidney disease, or unspecified chronic kidney disease
CPT/HCPCS: 36415; 36416; 71045; 80048; 80053; 82550; 82553; 82565; 83605; 83880; 84484; 85014; 85018; 85025; 85049; 85610; 85730; 87086; 93005; 93306; 96360; 96372; A4216; G8978-GP-CM; G8979-GP-CI; G8987-GO-CM; G8988-GO-CK; J0696; J1650; J1940; J3370; J7050

== ENCOUNTER → 2017-04-05 | Day surgery (SDC) | payer MEDICARE ==
--- NOTE | 2017-04-05 15:55 | RAD ---
SINGLE VIEW OF THE CHEST: COMPARISON: 04/01/17. HISTORY: Congestive heart failure. FINDINGS: Single view of the chest shows a normal sized cardiomediastinal silhouette. There is no evidence of c onsolidation, mass, or pleural effusion. The bones are unremarkable. IMPRESSION: No evidence of acute cardiopulmonary disease. POS: [facility]
== END ==
LOC: HS RAD 14:37
PROVIDERS: ATTEND Internal Medicine
DX: I13.0 Hypertensive heart and chronic kidney disease with heart failure and stage 1 through stage 4 chronic kidney disease, or unspecified chronic kidney disease (principal); I50.9 Heart failure, unspecified; N18.3 Chronic kidney disease, stage 3 (moderate); N40.0 Benign prostatic hyperplasia without lower urinary tract symptoms; I48.2 Chronic atrial fibrillation; F03.90 Unspecified dementia, unspecified severity, without behavioral disturbance, psychotic disturbance, mood disturbance, and anxiety; Z85.72 Personal history of non-Hodgkin lymphomas; Z79.01 Long term (current) use of anticoagulants; Z79.899 Other long term (current) drug therapy; Z98.52 Vasectomy status; Z90.89 Acquired absence of other organs
CPT/HCPCS: 71045